=== PATIENT | female | born 1960 | race Caucasian/White ===

== ENCOUNTER 2016-08-10 11:50 | Inpatient (IN) | payer OTHER ==
[~2016-08-10] VITALS: Ht 157.5 cm; Wt 69.7 kg
[~2016-08-10 11:50] MED LIST: ALPR0.5T3 PO; CYCL5TA PO; EFFE150C PO; EPI-PEN; IBUP600T26 PO; LOMO2.5T PO; REST0.05 OU; TOPA50TA7 PO; TRAZ50TA4 PO; TYLE325T5 PO; ZANTTAB PO
[2016-08-10 12:23] LABS: AMPHETAMINES LEVEL URINE NEGATIVE (NEGATIVE); BENZODIAZEPINES URINE NEGATIVE (NEGATIVE); COCAINE METABOLITE URINE NEGATIVE (NEGATIVE); CONTROL LINE INT CTR LINE PRESENT; METHADONE URINE NEGATIVE (NEGATIVE); OPIATES URINE NEGATIVE (NEGATIVE); TRICYCLIC ANTIDEPRESS URINE NEGATIVE (NEGATIVE)
[2016-08-10 13:02] LABS: MEAN CORPUSCULAR HGB CONC 33.9 g/dl (32.0-36.5); MEAN CORPUSCULAR VOLUME 91.6 fl (80.0-96.0); RED CELL DISTRIBUTION WIDTH 13.3 % (11.5-14.5); WHITE BLOOD COUNT 9.4 K/mm3 (4.0-10.0)
[2016-08-10 13:30] LABS: ALBUMIN 4.1 GM/DL (3.2-5.2); ALBUMIN/GLOBULIN RATIO 1.05 (1.00-1.93); ALKALINE PHOSPHATASE 127 U/L (45-117); ALT/SGPT 22 U/L (12-78); ANION GAP 8 MEQ/L (8-16); AST/SGOT 10 U/L (15-37); BILIRUBIN,DIRECT 0.1 MG/DL (0.0-0.2); BILIRUBIN,TOTAL 0.6 MG/DL (0.2-1.0); BLOOD UREA NITROGEN 17 MG/DL (7-18); CALCIUM LEVEL 9.5 MG/DL (8.5-10.1); CARBON DIOXIDE LEVEL 28 MEQ/L (21-32); CHLORIDE LEVEL 104 MEQ/L (98-107); CREATININE FOR GFR 0.95 MG/DL (0.55-1.02); GLOMERULAR FILTRATION RATE > 60.0 (>51); GLUCOSE, FASTING 89 MG/DL (70-105); POTASSIUM SERUM 4.1 MEQ/L (3.5-5.1); SODIUM LEVEL 140 MEQ/L (136-145)
[2016-08-10] MEDS ORDERED: VITA500T53 PO (14:33)
[2016-08-10] MEDS ORDERED: MAGN500T2 PO (14:33)
[2016-08-10] MEDS ORDERED: IBUP40TA PO (14:33)
[2016-08-10] MEDS ORDERED: ASPI1TAB PO (14:33)
[2016-08-10] MEDS ORDERED: CYCL10TA PO (14:33)
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
--- NOTE | 2016-08-10 16:40 | EDDOCDS ---
Physician Documentation [facility] Name: Jenna Hurtado Age: 56 yrs Sex: Female : 1960 Arrival Date: 08/10/2016 Time: 11:50 Bed BHU1 Private MD: Disposition: 08/10 14:41 Critical Care: Critical care not applicable. pc Disposition: 08/10/16 14:44 Hospitalization ordered by Freddy Alegre for Inpatient Admission. Preliminary diagnosis is Major depressive disorder, recurrent, moderate. - Bed requested for Admit. - Status is Inpatient Admission. ml6 - Condition is Stable. - Problem is new. - Symptoms are unchanged. HPI: 12:25 This 56 yrs old Female presents to ER via Police Car with complaints of Psych pc Problem. 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 A reliable history and/or pc examination was not able to be obtained, due to she does not want to answer any questions. The patient presents to the emergency department with suicidal ideation, depression. She was seen by her PCP today and left the clinic after making SI threats, per [facility]. A pick-up order was issued and she was brought here for Psych evaluation and admission. Historical: - Allergies: Lidocaine (Rash); PENICILLINS (Rash); SULFA (SULFONAMIDES) (Rash); Bees (Anaphylaxis); Codeine Sulfate (nightmares); - Home Meds: 1. trazodone 150 mg Oral tab nightly (Last dose: 08/09/2016 20:00) 2. venlafaxine 150 mg oral cp24 1 cap once daily (Last dose: 08/10/2016 07:00) 3. Xanax 0.5 mg Oral tab 1 tab 3 times per day (Last dose: 08/09/2016 14:00) 4. cyclobenzaprine 10 mg Oral tab 1 tab 3 times per day (Last dose: 08/09/2016 14:00) - PMHx: Degenerative disc disease; Depression; Fibromyalgia; PTSD; Bipolar disorder; - PSHx: Cholecystectomy; Hysterectomy; ; ovarian cysts; Left ankle ORIF; - The history from nurses notes was reviewed: but there are no nursing notes, or only partial notes available at the time of my charting. - Social history: Smoking status: Patient states was never smoker of tobacco. No barriers to communication noted, Speaks appropriately for age. - : The pt / caregiver states he / she is not on anticoagulants. Home medication list is obtained from the patient, Unable to Verify Home Med List with the patient / caregiver. - Immunization history:: All immunizations up-to-date. - Exposure Risk Screening:: None identified. - Family history: Not pertinent. - Social history:: the patient is a non-smoker, the patient does not drink alcohol. 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 The psychiatric and neurological components pc are also addressed in the HPI. Exam: 12:30 General Appearance: alert, no acute distress. pc 12:30 ENT: ear, nose and throat normal, pharynx normal. 12:30 Eyes: pupils equal, round and reactive to light, extraocular motions intact. 12:30 Neck: The exam reveals no acute abnormalities. ROM is normal and painless. No nuchal rigidity is noted.. 12:30 Respiratory: breathing is even and unlabored, breath sounds are normal. 12:30 Cardiovascular: regular pulse rate, regular heart rhythm, normal heart sounds, equal and full pulses bilaterally. 12:30 Abdomen: soft, non-tender, no organomegaly, normal bowel sounds. 12:30 Skin: skin color is normal, warm, dry. 12:30 Extremities: The extremities have a grossly normal appearance, are non-tender, without acute ROM abnormalities. 12:30 Neuro: alert, oriented to person, place and time, cranial nerves normal as tested, no motor deficits, no sensory deficits. 12:30 Psych: mood is depressed, tearful, affect is flat. Vital Signs: 12:32 BP 124 / 74; Pulse 91; Resp 18; Temp 97.4(O); Pulse Ox 98% on R/A; Weight 69.85 kg / ml6 153.99 lbs (R); Height 5 ft. 2 in. (157.48 cm) (R); Pain 0/10; 16:21 BP 120 / 66; Pulse 90; Resp 18; Temp 97.2(O); Pulse Ox 98% on R/A; dpm 12:32 Body Mass Index 28.17 (69.85 kg, 157.48 cm) ml6 MDM: 11:58 Consult PFS/PSA/Grant Writer: Patient's case requires discussion with on-call pc Psychiatrist ordered. 11:58 PSA/PFS to call Nursing Drawer In Dobby Loom, to enter patient data on [place] Safe Act if patient pc involuntarily admitted or transferred for SI or HI ordered. 11:58 Confirm accurate psychiatric medication list and times of last dosage ordered. pc 11:58 Detain Pt Until Medically/PFS Cleared ordered. pc 11:59 Acetaminophen Level Ordered. EDMS 11:59 Basic Metabolic Profile Ordered. EDMS 11:59 Complete Blood Count Ordered. EDMS 11:59 Drug Eval Toxicology ED Only Ordered. EDMS 11:59 Ethyl Alcohol (ethanol) Ordered. EDMS 11:59 Liver Profile Ordered. EDMS 11:59 Salicylate Level Ordered. EDMS 11:59 Thyroid Stimulating Hormone Ordered. EDMS 12:30 Differential diagnosis: depression, suicidal ideation. Plan: labs, PFS eval. pc 12:37 REGULAR DIET PLASTIC ALVAREZ+DIET ordered. EDMS 14:05 Acetaminophen Level Reviewed. pc 14:05 Liver Profile Reviewed. pc 14:05 Salicylate Level Reviewed. pc 14:05 Basic Metabolic Profile Reviewed. pc 14:05 Complete Blood Count Reviewed. pc 14:05 Drug Eval Toxicology ED Only Reviewed. pc 14:05 Ethyl Alcohol (ethanol) Reviewed. pc 14:05 Thyroid Stimulating Hormone Reviewed. pc 14:28 Admit to [facility]: ordered. EDMS 14:41 The patient has been medically cleared for psychiatric evaluation, admission and/or pc transfer. [place] Safe Act reporting: The patient poses a significant risk to self or others, and PSA/PFS has notified the Nursing Drawer In Dobby Loom and he/she will complete the required databases software consultant. Data reviewed: old medical records, vital signs, nurses notes, lab test results. Test interpretation: LAB - all labs as ordered have been reviewed, interpreted and considered in the overall management of the clinical presentation;. The patient has been re-examined and re-evaluated. There is no appreciated change of the patient's symptoms at this time. Disposition: The historical points, examination findings, and any diagnostic results supporting the provided diagnosis, were discussed with the patient or legal guardian. The need for further work-up and/or treatment in the hospital was explained. 15:44 MHE Legal paperwork was scanned into [email or web address] and attached to record. jl 16:07 Financial registration complete. zo 16:12 [facility] [place] Agreement was scanned into [employer] and attached to record. zo 16:16 MHE Legal paperwork was scanned into [email or web address] and attached to record. jordan 16:17 Other: [facility] Clinic Note was scanned into [email or web address] and attached to record. jordan Signatures: Dispatcher [employer] Ghanshyam Melendrez MD MD pc LaFontaine, Jon, SACHI PSA Sonya Franco Matthew, RN RN ml6 The chart was reviewed and I authenticate all verbal orders and agree with the evaluation and treatment provided.Attachments: 16:12 [facility] Payment Agreement zo MTDD
[2016-08-10 16:52] VITALS: BP 120/67
[2016-08-10] MEDS ORDERED: ALPRAZolam 0.5 MG TAB PO PRN (18:00)
[2016-08-10] MEDS: PANTOPRAZOLE 40MG TAB (PROTONIX) PO SCH ×2 (18:58→19:00)
[2016-08-10] MEDS ORDERED: traZODone 50 MG TAB PO SCH (21:00)
[2016-08-10] MEDS: CYCLOBENZAPRINE 10 MG TAB PO SCH (21:20)
[2016-08-11 06:00] VITALS: BP 99/58
[2016-08-11] MEDS: CYCLOBENZAPRINE 10 MG TAB PO SCH ×3 (08:29→20:57)
[2016-08-11] MEDS: VENLAFAXINE **XR** 75MG CAPSULE PO SCH (08:29)
[2016-08-11] MEDS: IBUPROFEN 400 MG TAB PO PRN ×2 (08:30→20:58)
[2016-08-11] MEDS: PANTOPRAZOLE 40MG TAB (PROTONIX) PO SCH (08:31)
--- NOTE | 2016-08-11 11:42 | HPEPDOC ---
Medical History and Physical Date of Admission Aug 10, 2016 at 14:23 History and Physical PCP: Dr Thomas Baumann ATTENDING: Dr. Enoc Leong HPI: 56yoF admitted to [facility] for depressive disorder, being medically examined today. She reports she is having neck discomfort today which is radiating up the back of her head. She typically applies heat at home. She lies down to rest at home. Denies any fevers, chills, weakness, fatigue, VALENCIA, CP, SOB, cough, palpitations, abdominal pain, N/V/D or changes in bowel or bladder habits. PMHx: Depression Bipolar disorder PTSD Fibromyalgia History of TBI 2011 (Pt states head injury related to fall from horse) Chronic neck pain Degenerative disc disease PSHX: Cholecystectomy Hysterectomy Left ankle ORIF SOCHX: Resides in: 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 One son [place] Syndrome. Unexpected deaths due to medical reasons: None. ROS: As noted in HPI, otherwise 11pt ROS of systems reviewed and remarkable for LMP N /A hysterectomy PE: GEN: 56 yoF, appears stated age. Well-nourished, well developed. No acute distress. Alert and oriented x 3. Pleasant, interactive. HEENT: Normocephalic, atraumatic. Pupils are equal, round, and reactive to light. Extraocular movements are intact. No nystagmus appreciated. Sclera are nonicteric. Conjunctiva without injection. Nose midline. Nasal turbinates without bogginess. EACs both patent BL. TMs both visualized and woodard with good cone of light, no bulging or erythema. No facial asymmetry. Moist mucous membranes. Dentition fair. Pharynx pink and moist, no cobblestoning. Neck supple , trachea midline. No lymphadenopathy or thyromegaly appreciated. CHEST: Regular rate and rhythm, +S1, +S2 LUNGS: Clear to auscultation bilaterally. No wheezes, rales, or rhonchi. Breathing appears symmetric and easy. Patient is speaking in full sentences. No accessory muscle use. ABD: Round, soft, non-tender, non-distended. +Bowel sounds throughout. No rebound or guarding. No costovertebral angle tenderness. EXT: Pulses 2+ bilaterally dorsalis pedis and radial. No lower extremity edema appreciated. SKIN: [place], dry, warm. Capillary refill <2sec. No rashes. NEURO: Alert and oriented x 3. Cranial nerves III-XII are intact. No focal deficits appreciated. EKG: pending. A&P: 56yoF admitted to [facility] for depressive disorder 1. Psych. Plan per Psychiatry. Obtain baseline EKG to assure the safety of psychiatric medications as they can prolong the QT interval. 2. DDD/chronic neck pain. Continue Flexeril 10 mg 3 times a day. Patient declines topical BenGay related to odor/Lidoderm patch related to allergy. Pt declines Flector patch. Voltaren gel not on formulary. Apply heat as needed. Pt does not wish to obtain Pain consult at this time. MRI cervical spine 12/23 indicated cervical spondylosis C2-3 through C6-7, no spinal stenosis. 3. Chronic headache. Continue Advil 400 mg every 6 hours as needed. 4. Follow up with PCP on discharge. Dr Baumann. 5. Staff member present throughout exam, Teresa WATKINS. Vital Signs Vital Signs Label Value Date Time Patient Temperature 98.1 degrees F 08/11/16 0600 Pulse 83 08/11/16 0600 Respiratory Rate 16 bpm 08/11/16 0600 Blood Pressure Assessment 99/58 (72) 08/11/16 0600 Blood Pressure Assessment 120/67 (84) 08/10/16 165 Bedside Pulse Oximetry 96 % 08/10/16 1652 Item Value Date Time Oxygen Delivery Method Room Air 08/10/16 1652 Laboratory Data Labs 24H Laboratory Tests 2 08/10/16 12:03: Acetaminophen Level < 2.0L, Aspartate Amino Transf (AST/SGOT) 10L, Alanine Aminotransferase (ALT/SGPT) 22, Alkaline Phosphatase 127H, Total Bilirubin 0.6, Direct Bilirubin 0.1, Albumin 4.1, Albumin/Globulin Ratio 1.05, Anion Gap 8, Calcium Level 9.5, Ethyl Alcohol Level < 0.003, Glomerular Filtration Rate > 60.0, Salicylates Level < 1.7L, Thyroid Stimulating Hormone (TSH) 1.750, Total Protein 8.0, Urine Amphetamine Level NEGATIVE, Urine Benzodiazepines Screen NEGATIVE, Urine Cannabinoids NEGATIVE, Urine Cocaine Metabolite NEGATIVE, Urine Opiates Screen NEGATIVE, Urine Barbiturates, Qualitative NEGATIVE, Urine Methadone Screen NEGATIVE, Urine Tricyclic Antidepressants NEGATIVE CBC/BMP Laboratory Tests 08/10/16 12:03 Red Blood Count 4.73, Mean Corpuscular Volume 91.6, Mean Corpuscular Hemoglobin 31.0, Mean Corpuscular Hemoglobin Concent 33.9, Red Cell Distribution Width 13.3 Home Medications Scheduled Aspirin (Aspirin 81) 81 Mg Tab 81 MG PO DAILY Cyanocobalamin (Vitamin B12) 500 Mcg Tab 500 MCG PO DAILY Magnesium Oxide (Magnesium) 500 Mg Tab 500 MG PO DAILY Trazodone HCl (Trazodone HCl) 50 Mg Tab 150 MG PO QHS TAKES 50MG TABS, PT CAN'T SWALLOW OTHER 100MG TABS Venlafaxine Hydrochloride (Effexor Xr) 150 Mg Cap 150 MG PO DAILY Scheduled PRN Alprazolam (Alprazolam) 0.5 Mg Tab 0.5 MG PO TIDP PRN PRN ANXIETY Cyclobenzaprine HCl (Cyclobenzaprine HCl) 10 Mg Tab 10 MG PO TID PRN PRN MUSCLE SPASMS Ibuprofen (Ibuprofen) 400 Mg Tab 400 MG PO PRN HEADACHE Allergies Coded Allergies: Aripiprazole (Unverified Allergy, Unknown, "I CANT REMEMBER RIGHT NOW", ) Penicillins (Verified Allergy, Unknown, 10/11/12) Penicillins Cross Reactors (Verified Allergy, Unknown, 10/11/12) Sulfa Drugs (Verified Allergy, Unknown, 10/11/12) Sulfa Drugs Cross Reactors (Verified Allergy, Unknown, 10/11/12) Lurasidone (Verified Adverse Reaction, Intermediate, PALPITATIONS AND BLURRY VISION, 10/26/14) Jordyn Narayan Aug 11, 2016 11:42
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
[2016-08-11] MEDS ORDERED: hydrOXYzine 50 MG TAB PO PRN (15:45)
[2016-08-11 18:00] VITALS: BP 93/54
[2016-08-11] MEDS ORDERED: ALPRAZolam 0.5 MG TAB PO PRN (18:00)
[2016-08-11] MEDS: traZODone 50 MG TAB PO PRN (20:57)
[2016-08-12 06:40] VITALS: BP 95/54
[2016-08-12] MEDS: PANTOPRAZOLE 40MG TAB (PROTONIX) PO SCH (09:00)
[2016-08-12] MEDS: VENLAFAXINE **XR** 75MG CAPSULE PO SCH (09:40)
[2016-08-12] MEDS: CYCLOBENZAPRINE 10 MG TAB PO SCH ×3 (09:40→20:59)
[2016-08-12] MEDS: IBUPROFEN 400 MG TAB PO PRN (09:41)
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
--- NOTE | 2016-08-12 17:40 | EDDOCDS ---
Physician Documentation [facility] Name: Jenna Hurtado Age: 56 yrs Sex: Female : 1960 Arrival Date: 08/10/2016 Time: 11:50 Bed BHU1 Private MD: Disposition: 08/10 14:41 Critical Care: Critical care not applicable. pc Disposition: 08/10/16 14:44 Hospitalization ordered by Freddy Alegre for Inpatient Admission. Preliminary diagnosis is Major depressive disorder, recurrent, moderate. - Bed requested for Admit. - Status is Inpatient Admission. ml6 - Condition is Stable. - Problem is new. - Symptoms are unchanged. HPI: 12:25 This 56 yrs old Female presents to ER via Police Car with complaints of Psych pc Problem. 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 A reliable history and/or pc examination was not able to be obtained, due to she does not want to answer any questions. The patient presents to the emergency department with suicidal ideation, depression. She was seen by her PCP today and left the clinic after making SI threats, per [facility]. A pick-up order was issued and she was brought here for Psych evaluation and admission. Historical: - Allergies: Lidocaine (Rash); PENICILLINS (Rash); SULFA (SULFONAMIDES) (Rash); Bees (Anaphylaxis); Codeine Sulfate (nightmares); - Home Meds: 1. trazodone 150 mg Oral tab nightly (Last dose: 08/09/2016 20:00) 2. venlafaxine 150 mg oral cp24 1 cap once daily (Last dose: 08/10/2016 07:00) 3. Xanax 0.5 mg Oral tab 1 tab 3 times per day (Last dose: 08/09/2016 14:00) 4. cyclobenzaprine 10 mg Oral tab 1 tab 3 times per day (Last dose: 08/09/2016 14:00) - PMHx: Degenerative disc disease; Depression; Fibromyalgia; PTSD; Bipolar disorder; - PSHx: Cholecystectomy; Hysterectomy; ; ovarian cysts; Left ankle ORIF; - The history from nurses notes was reviewed: but there are no nursing notes, or only partial notes available at the time of my charting. - Social history: Smoking status: Patient states was never smoker of tobacco. No barriers to communication noted, Speaks appropriately for age. - : The pt / caregiver states he / she is not on anticoagulants. Home medication list is obtained from the patient, Unable to Verify Home Med List with the patient / caregiver. - Immunization history:: All immunizations up-to-date. - Exposure Risk Screening:: None identified. - Family history: Not pertinent. - Social history:: the patient is a non-smoker, the patient does not drink alcohol. 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 The psychiatric and neurological components pc are also addressed in the HPI. Exam: 12:30 General Appearance: alert, no acute distress. pc 12:30 ENT: ear, nose and throat normal, pharynx normal. 12:30 Eyes: pupils equal, round and reactive to light, extraocular motions intact. 12:30 Neck: The exam reveals no acute abnormalities. ROM is normal and painless. No nuchal rigidity is noted.. 12:30 Respiratory: breathing is even and unlabored, breath sounds are normal. 12:30 Cardiovascular: regular pulse rate, regular heart rhythm, normal heart sounds, equal and full pulses bilaterally. 12:30 Abdomen: soft, non-tender, no organomegaly, normal bowel sounds. 12:30 Skin: skin color is normal, warm, dry. 12:30 Extremities: The extremities have a grossly normal appearance, are non-tender, without acute ROM abnormalities. 12:30 Neuro: alert, oriented to person, place and time, cranial nerves normal as tested, no motor deficits, no sensory deficits. 12:30 Psych: mood is depressed, tearful, affect is flat. Vital Signs: 12:32 BP 124 / 74; Pulse 91; Resp 18; Temp 97.4(O); Pulse Ox 98% on R/A; Weight 69.85 kg / ml6 153.99 lbs (R); Height 5 ft. 2 in. (157.48 cm) (R); Pain 0/10; 16:21 BP 120 / 66; Pulse 90; Resp 18; Temp 97.2(O); Pulse Ox 98% on R/A; dpm 12:32 Body Mass Index 28.17 (69.85 kg, 157.48 cm) ml6 MDM: 11:58 Consult PFS/PSA/Clerk Of Scales: Patient's case requires discussion with on-call pc Psychiatrist ordered. 11:58 PSA/PFS to call Nursing Dental Detail Representative, to enter patient data on [place] Safe Act if patient pc involuntarily admitted or transferred for SI or HI ordered. 11:58 Confirm accurate psychiatric medication list and times of last dosage ordered. pc 11:58 Detain Pt Until Medically/PFS Cleared ordered. pc 11:59 Acetaminophen Level Ordered. EDMS 11:59 Basic Metabolic Profile Ordered. EDMS 11:59 Complete Blood Count Ordered. EDMS 11:59 Drug Eval Toxicology ED Only Ordered. EDMS 11:59 Ethyl Alcohol (ethanol) Ordered. EDMS 11:59 Liver Profile Ordered. EDMS 11:59 Salicylate Level Ordered. EDMS 11:59 Thyroid Stimulating Hormone Ordered. EDMS 12:30 Differential diagnosis: depression, suicidal ideation. Plan: labs, PFS eval. pc 12:37 REGULAR DIET PLASTIC ALVAREZ+DIET ordered. EDMS 14:05 Acetaminophen Level Reviewed. pc 14:05 Liver Profile Reviewed. pc 14:05 Salicylate Level Reviewed. pc 14:05 Basic Metabolic Profile Reviewed. pc 14:05 Complete Blood Count Reviewed. pc 14:05 Drug Eval Toxicology ED Only Reviewed. pc 14:05 Ethyl Alcohol (ethanol) Reviewed. pc 14:05 Thyroid Stimulating Hormone Reviewed. pc 14:28 Admit to [facility]: ordered. EDMS 14:41 The patient has been medically cleared for psychiatric evaluation, admission and/or pc transfer. [place] Safe Act reporting: The patient poses a significant risk to self or others, and PSA/PFS has notified the Nursing Dental Detail Representative and he/she will complete the required etl database developer. Data reviewed: old medical records, vital signs, nurses notes, lab test results. Test interpretation: LAB - all labs as ordered have been reviewed, interpreted and considered in the overall management of the clinical presentation;. The patient has been re-examined and re-evaluated. There is no appreciated change of the patient's symptoms at this time. Disposition: The historical points, examination findings, and any diagnostic results supporting the provided diagnosis, were discussed with the patient or legal guardian. The need for further work-up and/or treatment in the hospital was explained. 15:44 [facility] Legal paperwork was scanned into [employer] and attached to record. jl 16:07 Financial registration complete. zo 16:12 [facility] Payment Agreement was scanned into [employer] and attached to record. zo 16:16 [facility] Legal paperwork was scanned into [employer] and attached to record. jordan 16:17 Other: [facility] Clinic Note was scanned into [employer] and attached to record. jordan Signatures: Dispatcher [employer] Ghanshyam Melendrez MD MD pc LaFontaine, Jon, SACHI PSA Sonya Franco Matthew, RN RN ml6 The chart was reviewed and I authenticate all verbal orders and agree with the evaluation and treatment provided.Attachments: 16:12 [facility] Payment Agreement zo Chart Complete MTDD
--- NOTE | 2016-08-12 17:41 | EDDOCDS ---
Physician Documentation [facility] Name: Jenna Hurtado Age: 56 yrs Sex: Female : 1960 Arrival Date: 08/10/2016 Time: 11:50 Bed BHU1 Private MD: Disposition: 08/10 14:41 Critical Care: Critical care not applicable. pc Disposition: 08/10/16 14:44 Hospitalization ordered by Freddy Alegre for Inpatient Admission. Preliminary diagnosis is Major depressive disorder, recurrent, moderate. - Bed requested for Admit. - Status is Inpatient Admission. ml6 - Condition is Stable. - Problem is new. - Symptoms are unchanged. HPI: 12:25 This 56 yrs old Female presents to ER via Police Car with complaints of Psych pc Problem. 12:26 The history is obtained from the patient, a harbor patrol police. A reliable history and/or pc examination was not able to be obtained, due to she does not want to answer any questions. The patient presents to the emergency department with suicidal ideation, depression. She was seen by her PCP today and left the clinic after making SI threats, per [facility]. A pick-up order was issued and she was brought here for Psych evaluation and admission. Historical: - Allergies: Lidocaine (Rash); PENICILLINS (Rash); SULFA (SULFONAMIDES) (Rash); Bees (Anaphylaxis); Codeine Sulfate (nightmares); - Home Meds: 1. trazodone 150 mg Oral tab nightly (Last dose: 08/09/2016 20:00) 2. venlafaxine 150 mg oral cp24 1 cap once daily (Last dose: 08/10/2016 07:00) 3. Xanax 0.5 mg Oral tab 1 tab 3 times per day (Last dose: 08/09/2016 14:00) 4. cyclobenzaprine 10 mg Oral tab 1 tab 3 times per day (Last dose: 08/09/2016 14:00) - PMHx: Degenerative disc disease; Depression; Fibromyalgia; PTSD; Bipolar disorder; - PSHx: Cholecystectomy; Hysterectomy; ; ovarian cysts; Left ankle ORIF; - The history from nurses notes was reviewed: but there are no nursing notes, or only partial notes available at the time of my charting. - Social history: Smoking status: Patient states was never smoker of tobacco. No barriers to communication noted, Speaks appropriately for age. - : The pt / caregiver states he / she is not on anticoagulants. Home medication list is obtained from the patient, Unable to Verify Home Med List with the patient / caregiver. - Immunization history:: All immunizations up-to-date. - Exposure Risk Screening:: None identified. - Family history: Not pertinent. - Social history:: the patient is a non-smoker, the patient does not drink alcohol. POST ACUTE CARE REGISTERED NURSE: 12:32 LMP N/A - Hysterectomy ml6 ROS: 12:30 All systems are negative except as listed. The psychiatric and neurological components pc are also addressed in the HPI. Exam: 12:30 General Appearance: alert, no acute distress. pc 12:30 ENT: ear, nose and throat normal, pharynx normal. 12:30 Eyes: pupils equal, round and reactive to light, extraocular motions intact. 12:30 Neck: The exam reveals no acute abnormalities. ROM is normal and painless. No nuchal rigidity is noted.. 12:30 Respiratory: breathing is even and unlabored, breath sounds are normal. 12:30 Cardiovascular: regular pulse rate, regular heart rhythm, normal heart sounds, equal and full pulses bilaterally. 12:30 Abdomen: soft, non-tender, no organomegaly, normal bowel sounds. 12:30 Skin: skin color is normal, warm, dry. 12:30 Extremities: The extremities have a grossly normal appearance, are non-tender, without acute ROM abnormalities. 12:30 Neuro: alert, oriented to person, place and time, cranial nerves normal as tested, no motor deficits, no sensory deficits. 12:30 Psych: mood is depressed, tearful, affect is flat. Vital Signs: 12:32 BP 124 / 74; Pulse 91; Resp 18; Temp 97.4(O); Pulse Ox 98% on R/A; Weight 69.85 kg / ml6 153.99 lbs (R); Height 5 ft. 2 in. (157.48 cm) (R); Pain 0/10; 16:21 BP 120 / 66; Pulse 90; Resp 18; Temp 97.2(O); Pulse Ox 98% on R/A; dpm 12:32 Body Mass Index 28.17 (69.85 kg, 157.48 cm) ml6 MDM: 11:58 Consult PFS/PSA/Sugar Cane Farm Manager: Patient's case requires discussion with on-call pc Psychiatrist ordered. 11:58 PSA/PFS to call Nursing Motor Patrol Operator, to enter patient data on [place] Safe Act if patient pc involuntarily admitted or transferred for SI or HI ordered. 11:58 Confirm accurate psychiatric medication list and times of last dosage ordered. pc 11:58 Detain Pt Until Medically/PFS Cleared ordered. pc 11:59 Acetaminophen Level Ordered. EDMS 11:59 Basic Metabolic Profile Ordered. EDMS 11:59 Complete Blood Count Ordered. EDMS 11:59 Drug Eval Toxicology ED Only Ordered. EDMS 11:59 Ethyl Alcohol (ethanol) Ordered. EDMS 11:59 Liver Profile Ordered. EDMS 11:59 Salicylate Level Ordered. EDMS 11:59 Thyroid Stimulating Hormone Ordered. EDMS 12:30 Differential diagnosis: depression, suicidal ideation. Plan: labs, PFS eval. pc 12:37 REGULAR DIET PLASTIC ALVAREZ+DIET ordered. EDMS 14:05 Acetaminophen Level Reviewed. pc 14:05 Liver Profile Reviewed. pc 14:05 Salicylate Level Reviewed. pc 14:05 Basic Metabolic Profile Reviewed. pc 14:05 Complete Blood Count Reviewed. pc 14:05 Drug Eval Toxicology ED Only Reviewed. pc 14:05 Ethyl Alcohol (ethanol) Reviewed. pc 14:05 Thyroid Stimulating Hormone Reviewed. pc 14:28 Admit to [facility]: ordered. EDMS 14:41 The patient has been medically cleared for psychiatric evaluation, admission and/or pc transfer. [place] Safe [place] reporting: The patient poses a significant risk to self or others, and PSA/PFS has notified the Nursing Motor Patrol Operator and he/she will complete the required database marketing analyst. Data reviewed: old medical records, vital signs, nurses notes, lab test results. Test interpretation: LAB - all labs as ordered have been reviewed, interpreted and considered in the overall management of the clinical presentation;. The patient has been re-examined and re-evaluated. There is no appreciated change of the patient's symptoms at this time. Disposition: The historical points, examination findings, and any diagnostic results supporting the provided diagnosis, were discussed with the patient or legal guardian. The need for further work-up and/or treatment in the hospital was explained. 15:44 [facility] Legal paperwork was scanned into [employer] and attached to record. jl 16:07 Financial registration complete. zo 16:12 [facility] [place] Agreement was scanned into [employer] and attached to record. zo 16:16 [facility] Legal paperwork was scanned into [employer] and attached to record. jordan 16:17 Other: [facility] Note was scanned into [employer] and attached to record. jordan Signatures: Dispatcher [employer] Ghanshyam Melendrez MD MD pc LaFontaine, Jon, SACHI PSA Sonya Franco Matthew, RN RN ml6 The chart was reviewed and I authenticate all verbal orders and agree with the evaluation and treatment provided.Attachments: 16:12 [facility] Payment Agreement zo Chart Complete MTDD
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
[2016-08-12 18:00] VITALS: BP 111/60
[2016-08-12] MEDS: GABAPENTIN 300 MG CAP PO SCH (20:59)
[2016-08-12] MEDS: traZODone 50 MG TAB PO PRN (21:00)
[2016-08-13 06:49] VITALS: BP 94/50
[2016-08-13] MEDS: VENLAFAXINE **XR** 75MG CAPSULE PO SCH (08:31)
[2016-08-13] MEDS: ASPIRIN 81 MG ENTERIC TAB PO SCH (08:31)
[2016-08-13] MEDS: IBUPROFEN 400 MG TAB PO PRN ×3 (08:31→22:17)
[2016-08-13] MEDS: CYCLOBENZAPRINE 10 MG TAB PO SCH ×3 (08:31→20:53)
[2016-08-13] MEDS: PANTOPRAZOLE 40MG TAB (PROTONIX) PO SCH (08:32)
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
[2016-08-13 18:00] VITALS: BP 113/56
[2016-08-13] MEDS ORDERED: GABA300C3 PO (19:57)
[2016-08-13] MEDS ORDERED: HYDRO50TAB PO (19:57)
[2016-08-13] MEDS ORDERED: TRAZO50TA PO (19:57)
[2016-08-13] MEDS ORDERED: VENL75CA PO (19:57)
[2016-08-13] MEDS: GABAPENTIN 300 MG CAP PO SCH (20:53)
[2016-08-13] MEDS: traZODone 50 MG TAB PO PRN (20:54)
[2016-08-14 06:37] VITALS: BP 132/56
[2016-08-14] MEDS: VENLAFAXINE **XR** 75MG CAPSULE PO SCH (08:45)
[2016-08-14] MEDS: ASPIRIN 81 MG ENTERIC TAB PO SCH (08:45)
[2016-08-14] MEDS: CYCLOBENZAPRINE 10 MG TAB PO SCH (08:45)
[2016-08-14] MEDS: IBUPROFEN 400 MG TAB PO PRN (08:45)
[2016-08-14] MEDS: PANTOPRAZOLE 40MG TAB (PROTONIX) PO SCH (08:46)
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
== END 2016-08-14 10:45 | disposition home or self-care (01) | DRG 751 ==
LOC: M ED 11:50 → M PSY 14:23
PROVIDERS: ADMIT Psychiatry & Neurology Psychiatry; ATTEND Psychiatry & Neurology Psychiatry
DX: F33.9 Major depressive disorder, recurrent, unspecified (principal); F31.9 Bipolar disorder, unspecified; F43.10 Post-traumatic stress disorder, unspecified; Z88.0 Allergy status to penicillin; Z88.2 Allergy status to sulfonamides; Z88.8 Allergy status to other drugs, medicaments and biological substances; Z79.82 Long term (current) use of aspirin; Z79.899 Other long term (current) drug therapy; M79.7 Fibromyalgia

== ENCOUNTER 2017-03-21 19:14 | Emergency (ER) | payer OTHER, SELFPAY ==
[~2017-03-21] VITALS: Ht 157.5 cm; Wt 72.0 kg
[~2017-03-21 19:14] MED LIST changes: +ASPI1TAB PO; +CYCL10TA PO; +GABA-282 PO; +HYDRO50TAB PO; +IBUP-1022 PO; +IBUP40TA PO; -IBUP600T26 PO; +MAGN500T2 PO; -TOPA50TA7 PO; +TOPA50TA8 PO; +TRAZ50TA11 PO; -TRAZ50TA4 PO; +TRAZO50TA PO; +VENL75CA2 PO; +VITA500T53 PO
[2017-03-21] MEDS ORDERED: TRAZ-136 PO (19:26)
[2017-03-21] MEDS ORDERED: KETOROLAC 60 MG/2 ML VIAL (J1885) IM ONE (19:45)
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
[2017-03-21] MEDS ORDERED: VALI5TAB PO (20:52)
[2017-03-21 21:09] VITALS: BP 115/66
== END 2017-03-21 21:21 | disposition home or self-care (01) ==
LOC: M ED 19:14
DX: S06.0X0A Concussion without loss of consciousness, initial encounter (principal); S40.012A Contusion of left shoulder, initial encounter; W01.0XXA Fall on same level from slipping, tripping and stumbling without subsequent striking against object, initial encounter; Y92.830 Public park as the place of occurrence of the external cause; Y93.89 Activity, other specified; Y99.8 Other external cause status; M50.30 Other cervical disc degeneration, unspecified cervical region; Z78.0 Asymptomatic menopausal state; G89.29 Other chronic pain; F99 Mental disorder, not otherwise specified; Z88.0 Allergy status to penicillin; Z88.2 Allergy status to sulfonamides; Z88.5 Allergy status to narcotic agent; Z88.8 Allergy status to other drugs, medicaments and biological substances
CPT/HCPCS: 70450; 72125; 96372; 99282; J1885; J3360

== ENCOUNTER → 2017-03-22 | Outpatient (REF) | payer OTHER ==
[~2017-03-22] MED LIST changes: +TRAZ-136 PO; +VALI5TAB PO
== END ==
LOC: M LAB REF 19:54
PROVIDERS: ATTEND Nurse Practitioner Family
DX: R19.7 Diarrhea, unspecified (principal)

== ENCOUNTER → 2024-09-20 | Outpatient (REF) | payer MEDICARE ==
[~2024-09-20] MED LIST changes: -ASPI1TAB PO; +ASPI81TA26 PO; +CYCL-707 PO; -CYCL10TA PO; -CYCL5TA PO; +CYCL5TAB5 PO; -EFFE150C PO; +EFFE150C3 PO; +GABA-1172 PO; -GABA-282 PO; +HYDR1TAB33 PO; -HYDRO50TAB PO; +IBUP1TAB5 PO; -IBUP40TA PO; +MOXI1TAB PO; +PRED20TA PO; +PROAAER10 INH; -TRAZ-136 PO; +TRAZ-252 PO; +TRAZ-257 PO; +TRAZ1TAB10 PO; -TRAZ50TA11 PO; -TRAZO50TA PO; +VITA500T17 PO; -VITA500T53 PO; +ZANT150T40 PO; -ZANTTAB PO
== END ==
LOC: M LAB REF 15:06
PROVIDERS: ATTEND Family Medicine
DX: Z11.59 Encounter for screening for other viral diseases (principal)

== ENCOUNTER → 2024-11-23 | Outpatient (REF) | payer MEDICARE ==
[2024-11-23 19:21] LABS: CREATININE FOR GFR 0.84 MG/DL (0.55-1.30)
== END ==
LOC: M LABWUC 17:48
PROVIDERS: ATTEND Physician Assistant Surgical
DX: M54.50 Low back pain, unspecified (principal)

== ENCOUNTER → 2024-11-28 | Outpatient (REF) | payer MEDICARE | LOC: M LAB REF 17:15 | PROVIDERS: ATTEND Nurse Practitioner Family | DX: R19.7 Diarrhea, unspecified (principal); R10.84 Generalized abdominal pain; A04.72 Enterocolitis due to Clostridium difficile, not specified as recurrent ==